=== PATIENT | female | born 1980 | race Caucasian/White ===

== ENCOUNTER 2019-04-16 17:28 | Outpatient (CLI) | payer OTHER | END 2019-04-16 17:49 | disposition short-term general hospital (02) | LOC: AMBL 17:28 | PROVIDERS: ATTEND Emergency Medicine | DX: M79.661 Pain in right lower leg (principal); M54.2 Cervicalgia; M54.9 Dorsalgia, unspecified; S51.012A Laceration without foreign body of left elbow, initial encounter; S31.110A Laceration without foreign body of abdominal wall, right upper quadrant without penetration into peritoneal cavity, initial encounter; V43.54XA Car driver injured in collision with van in traffic accident, initial encounter ==